=== PATIENT | female | born 1990 | race Caucasian/White ===

== ENCOUNTER → 2019-01-16 | Outpatient (REF) | payer OTHER ==
[2019-01-16 22:37] LABS: CHLAMYDIA DNA AMPLIFICATION NEGATIVE (NEGATIVE); GC DNA AMPLIFICATION NEGATIVE (NEGATIVE)
== END ==
LOC: M SFHCLERA 15:08
PROVIDERS: ATTEND Physician Assistant
DX: R30.0 Dysuria (principal); Z20.9 Contact with and (suspected) exposure to unspecified communicable disease